=== PATIENT | female | born 1985 | race Caucasian/White ===

== ENCOUNTER 2024-11-06 15:47 | Emergency (ER) | payer BC, SELFPAY ==
[2024-11-06 15:50] VITALS: BP 119/86
--- NOTE | 2024-11-06 15:57 | ED.GENMED ---
ED Provider Triage
<Gian Lao PA-C - Last Filed: 11/06/24 15:57>
-
Patient seen by provider in Triage?: Seen in Triage
Attestation: A medical screening examination has been initiated by a qualified medical provider. Based on the assessment performed at this time, it has been determined that an emergent medical condition may exist and the patient has been informed
that further medical evaluation and possible additional diagnostic testing may be needed.
HPI: 49-year-old female otherwise healthy presents with vomiting and diarrhea over the days. Son recently diagnosed with rotavirus. Stable vs. Check labs. Stool studies ordered .
GENERAL: Alert , in no apparent distress
EYE: No visual abnormalities.
NECK: Trachea midline
ENT: No visible abnormalities.
LUNGS: No acute respiratory distress
NEUROLOGICAL: Alert and oriented
SKIN: Skin intact. No visible changes.
MUSCULOSKELETAL: Moving extremities normally
PSYCH: Normal and appropriate interaction.
This is a medical evaluation conducted in person to initiate diagnostic evaluation and provide initial therapeutics. Please see further documentation by the treating clinician.
History of Present Illness
<Gian Lao PA-C - Last Filed: 11/06/24 15:57>
General
Chief Complaint: Abdominal Symptoms
Time Seen by Provider: 11/06/24 17:46
<Rafal Johnson PA-C - Last Filed: 11/06/24 20:25>
History of Present Illness
History of Present Illness:
39-year-old female with history of paroxysmal A-fib presents to the emergency department for evaluation of persistent diarrhea for the past 2 days. Son was admitted to [facility] over the weekend for rotavirus and she feels similar. Denies
any vomiting at this point. She is able to tolerate p.o. fluids however states that any p.o. ingestion results in near immediate diarrhea. Denies any dizziness or lightheadedness. Has had frequent palpitations that she feels represent paroxysms
of A-fib
Past History
<Gian Lao PA-C - Last Filed: 11/06/24 15:57>
Past History
ED Past Medical History: None and Other (Hematuria, present for many years. Never further evaluated according to patient.)
ED Past Surgical History: Other (Breast augmentation)
Social History
Tobacco: Non-smoker
Alcohol: Occasional
Personal:
Living: with family
Employment: Employed
Review of Systems
<Rafal Johnson PA-C - Last Filed: 11/06/24 20:25>
Review of Systems
Allergies reviewed?: Yes
All Other Systems: ROS reviewed and negative except as documented in HPI and ROS
Phy Exam
<Rafal Johnson PA-C - Last Filed: 11/06/24 20:25>
Physical Exam
Physical Exam:
GEN: Well appearing, NAD, WDWN
HEENT: Oral mucosa moist, no scleral icterus
Cardiac: Regular rate
Lung: No respiratory distress, no tachypnea
Abdomen: Soft, grossly nontender
MSK: No gross deformity or injuries
Skin: Good color, no pallor or jaundice, no rashes
Neuro: AO x3, moves all extremities freely
Psych: Calm, cooperative
Course
<Gian Lao PA-C - Last Filed: 11/06/24 15:57>
Orders/Labs/Results
Orders:
Orders
11/06/24 15:56
Test Result ONCE
11/06/24 16:21
Complete Blood Count/With Diff Urgent
Comprehensive Metabolic Panel Urgent
HCG, Serum Qualitative Screen Urgent
11/06/24 18:13
0.9% Sodium Chloride 1000 ml [Nss] 1,000 ml IV BOLUS
Abnormal Lab Results
11/06/24
16:21
Monocytes % 10.2 H %
(1.7-9.3)
Carbon Dioxide 21 L mmol/L
(22-30)
11/06/24 16:21
11/06/24 16:21
Vital Signs
Initial and Last Documented VS:
Initial Vital Signs
Temp Pulse Resp BP Pulse Ox
98.2 F 98 16 119/86 97
11/06/24 15:50 11/06/24 15:50 11/06/24 15:50 11/06/24 15:50 11/06/24 15:50
Last Documented Vital Signs
Temp Pulse Resp BP Pulse Ox
98.2 F 90 16 119/86 97
11/06/24 15:50 11/06/24 19:50 11/06/24 15:50 11/06/24 15:50 11/06/24 20:05
<Rafal Johnson PA-C - Last Filed: 11/06/24 20:25>
Orders/Labs/Results
Orders:
Orders
11/06/24 15:56
Test Result ONCE
11/06/24 16:21
Complete Blood Count/With Diff Urgent
Comprehensive Metabolic Panel Urgent
HCG, Serum Qualitative Screen Urgent
11/06/24 18:13
0.9% Sodium Chloride 1000 ml [Nss] 1,000 ml IV BOLUS
Abnormal Lab Results
11/06/24
16:21
Monocytes % 10.2 H %
(1.7-9.3)
Carbon Dioxide 21 L mmol/L
(22-30)
11/06/24 16:21
11/06/24 16:21
Vital Signs
Initial and Last Documented VS:
Initial Vital Signs
Temp Pulse Resp BP Pulse Ox
98.2 F 98 16 119/86 97
11/06/24 15:50 11/06/24 15:50 11/06/24 15:50 11/06/24 15:50 11/06/24 15:50
Last Documented Vital Signs
Temp Pulse Resp BP Pulse Ox
98.2 F 90 16 119/86 97
11/06/24 15:50 11/06/24 19:50 11/06/24 15:50 11/06/24 15:50 11/06/24 20:05
<Rafal Johnson PA-C - Last Filed: 11/06/24 20:25>
MDM/Problems Addressed
MDM/Problems Addressed:
Patient's labs are reassuring, given the paroxysms of A-fib she was given IV fluids for rehydration. Tolerating p.o. fluids at time of discharge, likely self-limited viral syndrome, no indication for CT imaging
<Rafal Johnson PA-C - Last Filed: 11/06/24 20:25>
*Critical Care Note
Total Time (30-74mins, 75-104mins- exclusive of procedures): Not Applicable
ED Attending Note
<Gian Lao PA-C - Last Filed: 11/06/24 15:57>
-
Portions of this chart may have been created with voice recognition software.� Occasional wrong word or��sound alike� substitutions may have occurred due to the inherent limitations of voice recognition software.
Discharge Plan
Departure
Patient Disposition: Home (Routine Discharge)
Date of Disposition: 11/06/24
Time of Disposition: 19:16
Patient with high blood pressure during this ER visit?: No
Discharge Problem:
Diarrhea
Instructions: Diarrhea in teens and adults
Prescriptions:
No Action
prenat.vits,solomon,etl-qwex-vvavl [ Vitamin] 1 EACH tablet
1 tab PO DAILY
oxycodone-acetaminophen 5 MG/325 MG tablet
1 tab PO Q4HPRN PRN (Reason: moderate pain) Qty: 8 0RF
ferrous sulfate [FeroSul] 325 MG tablet
325 mg PO BID Qty: 90 0RF
ibuprofen 600 MG tablet
600 mg PO Q4HPRN PRN (Reason: cramps) Qty: 90 0RF
Referrals:
Chidi Yeh DO [Family Provider] -
Interventions
Interventions:
*Risk Screen - Suicide Last Done: 11/06/24 15:50
*General Assessment Last Done: 11/06/24 15:50
*Neglect/Abuse Screening Last Done: 11/06/24 15:50
ED- Fall Risk Assessment Last Done: 11/06/24 17:59
*ED COVID-19 Vaccine History Last Done: 11/06/24 17:59
*Nursing Disposition Last Done: 11/06/24 20:05
[id number]-[id number] Assessment Last Done: 11/06/24 17:59
Discharge Date and Time
Discharge Date/Time: 11/06/24 20:01
Print Language: JAPANESE
[2024-11-06 16:24] LABS: % Basophils 0.4 % (0-2); % Eosinophils 0.4 % (0-6); % Immature Granulocytes 0.4 % (0-0.5); % Lymphocytes 24.7 % (20.5-51.1); % Monocytes 10.2 % (1.7-9.3); % Neutrophils 63.9 % (42.2-75.2); Absolute Lymphocytes 1.3 10^3/uL (1.2-3.4); Absolute Monocytes 0.5 10^3/uL (0.1-0.6); Absolute Neutrophils 3.3 10^3/uL (1.4-6.5); Hematocrit 41.3 % (37.0-47.0); Hemoglobin 14.2 g/dL (12.0-16.0); Mean Corp Hgb Conc. 34.4 g/dL (33.0-37.0); Mean Corpuscular Hgb 29.6 pg (27.0-31.0); Mean Corpuscular Volume 86.2 fL (81.0-99.0); Mean Platelet Volume 9.9 fL (7.4-10.4); Nucleated Red Blood Cells % 0 %; Platelet Count 217 10^3/uL (130-400); Red Blood Cell Count 4.79 10^6/uL (4.20-5.40); White Blood Cell Count 5.2 10^3/uL (4.8-10.8)
[2024-11-06 16:43] LABS: HCG, Serum Qualitative Screen Negative
[2024-11-06 16:45] LABS: ALT (SGPT) 25 U/L (0-35); AST (SGOT) 33 U/L (14-36); Albumin 4.9 g/dl (3.5-5.0); Alkaline Phosphatase 55 U/L (38-126); Blood Urea Nitrogen 11 mg/dl (7-17); Calcium 9.5 mg/dl (8.4-10.2); Carbon Dioxide 21 mmol/L (22-30); Chloride 104 mmol/L (98-107); Glucose 95 mg/dl (70-99); Potassium 3.7 mmol/L (3.5-5.1); Sodium 139 mmol/L (135-145); Total Bilirubin 0.6 mg/dl (0.2-1.3); Total Protein 7.8 g/dl (6.3-8.2); eGFR > 60.00
[2024-11-06 17:59] VITALS: BMI 22.0
[2024-11-06] MEDS: NSS 1000 IV (18:25)
== END 2024-11-06 20:01 | disposition home or self-care (01) ==
LOC: EMR 15:47
PROVIDERS: Physician Assistant; EMERGENCY PHYSICIAN Emergency Medicine; FAMILY PHYSICIAN Family Medicine
DX: R19.7 Diarrhea, unspecified (principal)
CPT/HCPCS: 99284; 96360; 80053; 84703; 85025